=== PATIENT | male | born 1980 | race Two or more races ===

== ENCOUNTER 2017-02-15 19:42 | Emergency (ER) | payer SELFPAY ==
--- NOTE | 2017-02-15 21:05 | ER Document Report ---
ED General - General Mode of Arrival: Ambulatory Information source: Patient TRAVEL OUTSIDE OF THE [place] IN LAST 30 DAYS: No - HPI Onset: Other - see HPI notes - General Chief Complaint: Abscess Stated Complaint: 2 PAINFUL BUMPS ON UPPER BACK. ITCHING ON HANDS/LE Time Seen by Provider: 02/15/17 20:45 Notes: Patient is a 36 year old male presenting to the ED for lumps on his back that he wants removed. Patient states the areas have been present for 2-3 years. Patient also complains of symptoms of itching for several months. Patient has no history of medical problems or rashes and does not have any known cause for the itching. Patient does not have a PCP. (KAMLA ANDREW) - Related Data Allergies/Adverse Reactions: No Known Allergies Allergy (Verified 02/15/17 20:14) Past Medical History - General Information source: Patient - Social History Smoking Status: Never Smoker Chew tobacco use (# tins/day): No Frequency of alcohol use: None Drug Abuse: None Family History: None Patient has suicidal ideation: No Patient has homicidal ideation: No - Medical History Medical History: Negative Surgical Hx: Negative - Immunizations Immunizations up to date: Yes Hx Diphtheria, Pertussis, Tetanus Vaccination: Yes - given in er today Review of Systems - Review of Systems Constitutional: No symptoms reported EENT: No symptoms reported Cardiovascular: No symptoms reported Respiratory: No symptoms reported Gastrointestinal: No symptoms reported Genitourinary: No symptoms reported Male Genitourinary: No symptoms reported Musculoskeletal: No symptoms reported Skin: See HPI Hematologic/Lymphatic: No symptoms reported Neurological/Psychological: No symptoms reported -: Yes All other systems reviewed and negative Physical Exam - Vital signs Interpretation: Normal - Vital signs Vitals: Temp Pulse Resp BP Pulse Ox 98.5 F 68 15 121/58 L 96 02/15/17 20:13 02/15/17 20:13 02/15/17 20:13 02/15/17 20:13 02/15/17 20:13 Temp Pulse Resp BP Pulse Ox 98.5 F 68 15 121/58 L 96 02/15/17 20:13 02/15/17 20:13 02/15/17 20:13 02/15/17 20:13 02/15/17 20:13 (KAMLA ANDREW) - Notes Notes: GENERAL: Alert, interacts well. No acute distress. HEAD: Normocephalic, atraumatic. EYES: Appear normal. Pupils equal, round, and reactive to light. ENT: Moist mucus membranes, tongue midline. NECK: Full range of motion. Supple. Trachea midline. LUNGS: Clear to auscultation bilaterally, no wheezes, rales, or rhonchi. No respiratory distress. HEART: Regular rate and rhythm. No murmurs, gallops, or rubs. EXTREMITIES: Moves all 4 extremities spontaneously. Normal strength. No edema. NEUROLOGICAL: Alert and oriented x3. Normal speech. No focal neurological deficits. GSC 15. PSYCH: Normal affect, normal mood. SKIN: Warm, dry, normal turgor. 2 lipomas present on the back, they are not secondarily infected or appearing like an abscess. (KAMLA ANDREW) Discharge - Discharge Clinical Impression: Multiple lipomas Condition: Stable Disposition: HOME, SELF-CARE Additional Instructions: Patient presents to the emergency department wanting lumps on his back removed that and then there for 2 or 3 years. These lipomas are not secondarily infected or abscess. Patient also states he has been itching for several months there is no skin lesions no history of medical problems no rashes. No identifiable cause for the itching. At this point I explained to him that I cannot manage lipomas in the emergency department nor can I remove them. I am going to give him a primary care to follow-up with explained to him that is not necessary to remove them emergently. And discussed reasons for ED return sooner Scribe Attestation: 02/15/17 21:21 I personally performed the services described in the documentation reviewed the documentation recorded by my scribe in my presence and it accurately and completely records my words and actions (YOMI JOHNSON) Scribe Documentation - Scribe Written by Lexie:: Kamla Andrew, Lexie, 02/15/17 22:30 acting as scribe for :: Phil
[2017-02-15 21:40] VITALS: BP 121/58
== END 2017-02-15 21:42 | disposition home or self-care (01) ==
LOC: ER 19:42
DX: D17.1 Benign lipomatous neoplasm of skin and subcutaneous tissue of trunk (principal); L02.212 Cutaneous abscess of back [any part, except buttock and flank]
CPT/HCPCS: 99282